=== PATIENT | male | born 1945 | race Caucasian/White ===

== ENCOUNTER 2017-02-06 17:27 | Emergency (ER) | payer BC, OTHER ==
--- NOTE | 2017-02-06 18:56 | ER Document Report ---
ED Medical Screen (RME) - General Chief Complaint: Toe Injury Stated Complaint: LEFT TOE PAIN,SWELLING Time Seen by Provider: 02/06/17 18:54 Notes: Patient states he came to the hospital because for approximately 3 days he has had some progressive pain of the left foot. He is also noticed some redness. He denies any other symptoms. He states he has had no fevers. No vomiting or diarrhea. He denies any chest pain or shortness of breath. His heart rate was noticed to be approximate 135. He states he does not have a normal high heart rate that he knows of. He states he does feel anxious and this may be the cause. Patient has no other systemic findings or systemic symptoms on history. TRAVEL OUTSIDE OF THE [place] IN LAST 30 DAYS: No - Related Data Allergies/Adverse Reactions: No Known Allergies Allergy (Unverified 02/06/17 17:58) Past Medical History - Social History Frequency of alcohol use: Rare Drug Abuse: None Renal/ Medical History: Denies: Hx Peritoneal Dialysis Physical Exam - Vital signs Vitals: Temp Pulse BP Pulse Ox 98.6 F 130 H 193/105 H 95 02/06/17 17:57 02/06/17 17:57 02/06/17 17:57 02/06/17 17:57 Course - Vital Signs Vital signs: Temp Pulse Resp BP Pulse Ox 98.6 F 130 H 193/105 H 95 02/06/17 17:57 02/06/17 17:57 02/06/17 17:57 02/06/17 17:57
[2017-02-06 19:22] LABS: ABSOLUTE BASOPHILS # (AUTO) 0.1 10^3/uL (0.0-0.2); ABSOLUTE EOSINOPHILS # (AUTO) 0.1 10^3/uL (0.0-0.6); ABSOLUTE LYMPHOCYTES (AUTO) 1.7 10^3/uL (0.5-4.7); ABSOLUTE NEUT (AUTO) 10.3 10^3/uL (1.7-8.2); BASOPHILS % (AUTO) 0.4 % (0-2); EOSINOPHILS % (AUTO) 0.5 % (0-6); HEMATOCRIT 51.1 % (37.9-51.0); HEMOGLOBIN 16.6 g/dL (13.5-17.0); HGB HCT DIFFERENCE -1.3; MEAN CORPUSCULAR HEMOGLOBIN 31.6 pg (27.0-33.4); MEAN CORPUSCULAR HGB CONC 32.4 g/dL (32.0-36.0); MEAN CORPUSCULAR VOLUME 98 fl (80-97); MONOCYTES % (AUTO) 7.7 % (3-13); RED BLOOD COUNT 5.24 10^6/uL (4.35-5.55); RED CELL DISTRIBUTION WIDTH 14.1 % (11.5-14.0); SEGMENTED NEUTROPHILS % (AUTO) 78.4 % (42-78); WHITE BLOOD COUNT 13.1 10^3/uL (4.0-10.5)
[2017-02-06 19:37] LABS: ALANINE AMINOTRANSFERASE 43 U/L (21-72); ALBUMIN 4.9 g/dL (3.5-5.0); ALKALINE PHOSPHATASE 108 U/L (38-126); ANION GAP 11 (5-19); ASPARTATE AMINO TRANSFERASE 30 U/L (17-59); BILIRUBIN,DIRECT 0.5 mg/dL (0.0-0.4); BILIRUBIN,TOTAL 0.8 mg/dL (0.2-1.3); BLOOD UREA NITROGEN 12 mg/dL (7-20); CALCIUM 10.2 mg/dL (8.4-10.2); CARBON DIOXIDE 23 mmol/L (22-30); CHLORIDE 107 mmol/L (98-107); CREATININE RESULT 1.08 mg/dL (0.52-1.25); GLUCOSE 120 mg/dL (75-110); POTASSIUM 4.4 mmol/L (3.6-5.0); SODIUM 141.4 mmol/L (137-145); TOTAL PROTEIN 8.2 g/dL (6.3-8.2)
--- NOTE | 2017-02-06 20:25 | ER Document Report ---
ED Extremity Problem, Lower - General Chief Complaint: Toe Injury Stated Complaint: LEFT TOE PAIN,SWELLING Time Seen by Provider: 02/06/17 18:54 Notes: Patient is a 71-year-old male comes emergency department for chief complaint of pain, swelling, and some redness to the left great toe area at the base. He states he thinks he had this before, unsure if he has a history of gout. He denies any injury to the area, he states he walks all the time because of his job. He denies any fever or chills. He denies history of diabetes. He states he does not take any daily medications but he has also not had a recent evaluation by primary care. He states he hates going to the doctor and gets nervous. TRAVEL OUTSIDE OF THE [place] IN LAST 30 DAYS: No - Related Data Allergies/Adverse Reactions: No Known Allergies Allergy (Unverified 02/06/17 17:58) Past Medical History - General Information source: Patient - Social History Smoking Status: Never Smoker Frequency of alcohol use: Rare Drug Abuse: None Lives with: Alone Family History: Reviewed & Not Pertinent Patient has suicidal ideation: No Patient has homicidal ideation: No - Medical History Medical History: Negative Renal/ Medical History: Denies: Hx Peritoneal Dialysis Surgical Hx: Negative Review of Systems - Review of Systems Constitutional: No symptoms reported EENT: No symptoms reported Cardiovascular: No symptoms reported Respiratory: No symptoms reported Gastrointestinal: No symptoms reported Genitourinary: No symptoms reported Male Genitourinary: No symptoms reported Musculoskeletal: See HPI Skin: See HPI Hematologic/Lymphatic: No symptoms reported Neurological/Psychological: No symptoms reported Physical Exam - Vital signs Vitals: Temp Pulse BP Pulse Ox 98.6 F 130 H 193/105 H 95 02/06/17 17:57 02/06/17 17:57 02/06/17 17:57 02/06/17 17:57 Interpretation: Normal - General General appearance: Anxious - Patient glancing around and appears nervous, talks rapidly In distress: None - HEENT Head: Normocephalic, Atraumatic Eyes: Normal Pupils: PERRL - Respiratory Respiratory status: No respiratory distress Chest status: Nontender Breath sounds: Normal Chest palpation: Normal - Cardiovascular Rhythm: Regular Heart sounds: Normal auscultation Murmur: No - Abdominal Inspection: Normal Distension: No distension Bowel sounds: Normal Tenderness: Nontender Organomegaly: No organomegaly - Back Back: Normal, Nontender - Extremities General upper extremity: Normal inspection, Nontender, Normal color, Normal ROM , Normal temperature General lower extremity: Other - Left MTP area with mild soft tissue swelling, some slight increased erythema over the area, no abnormal heat, mild tenderness to the area. Normal foot exam otherwise - Neurological Neuro grossly intact: Yes Cognition: Normal Orientation: AAOx4 Sandy Coma Scale Eye Opening: Spontaneous Sandy Coma Scale Verbal: Oriented Sandy Coma Scale Motor: Obeys Commands Veronica Coma Scale Total: 15 Speech: Normal Motor strength normal: LUE, RUE, LLE, RLE Sensory: Normal - Psychological Associated symptoms: Normal affect, Normal mood, Anxious - Skin Skin Temperature: Warm Skin Moisture: Dry Skin Color: Normal Course - Re-evaluation Re-evalutation: Patient tachycardic, hypertensive, however other than appearing slightly nervous he is actually very well-appearing, alert, nontoxic. Left first MTP joint is swollen and tender with mild erythema but there is no shininess to the area, there is no abnormal heat, there is no significant tenderness. Does not appear to be infected. Patient ambulates without difficulty. Patient does have a mild leukocytosis however. X-ray is unremarkable. Patient is asking to leave. I discussed with patient that he does not have any obvious signs of infection, there is mild swelling to the area but it is not consistent with gout, after discussion patient will be covered both with Keflex and with naproxen. I asked the nurse to repeat his vital signs, she reported to me that he is improved with his tachycardia but he is still tachycardic, he is very hypertensive, he remained nervous in appearance but well-appearing. I went to discuss with patient additional workup and at least treatments, also planned to discuss follow-up recommendations for this, however patient had already left the room unfortunately. - Vital Signs Vital signs: Temp Pulse Resp BP Pulse Ox 98.6 F 112 H 22 H 207/113 H 98 02/06/17 17:57 02/06/17 21:14 02/06/17 21:14 02/06/17 21:14 02/06/17 21:14 - Laboratory Result Diagrams: 02/06/17 19:05 02/06/17 19:05 Laboratory results interpreted by me: 02/06/17 02/06/17 19:05 19:05 WBC 13.1 H Hct 51.1 H MCV 98 H RDW 14.1 H Seg Neutrophils % 78.4 H Absolute Neutrophils 10.3 H Glucose 120 H Direct Bilirubin 0.5 H Discharge - Discharge Clinical Impression: Left foot pain Disposition: HOME, SELF-CARE Additional Instructions: The x-ray of the foot is normal. The examination shows some soft tissue swelling and mild redness, this is nonspecific. I recommend elevating your foot , applying ice to the area 3-4 times a day, taking both the anti-inflammatory and the Keflex as a precaution. Follow-up with the primary care referral closely for additional monitoring of your blood pressure and vital signs (within the next few days). Return immediately if the area becomes hot, increasingly red, starts to spread or you develop a fever. Prescriptions: Cephalexin Monohydrate [Keflex 500 mg Capsule] 500 mg PO QID #28 capsule Naproxen [Naprosyn 250 mg Tablet] 250 mg PO DAILY PRN #10 tablet PRN Reason: Forms: Return to Work, Elevated Blood Pressure Referrals: FARIDA ORANTES MD [ACTIVE STAFF] - Follow up in 1 week HALEY TAPIA MD [ACTIVE STAFF] - Follow up in 1 week
--- NOTE | 2017-02-06 20:35 | RADIOLOGY REPORT (SQ) ---
EXAM DESCRIPTION: FOOT LEFT COMPLETE COMPLETED DATE/TIME: 02/06/2017 8:25 pm REASON FOR STUDY: pain, swelling COMPARISON: None. NUMBER OF VIEWS: Three views. TECHNIQUE: AP, lateral and oblique radiographic images acquired of the left foot. LIMITATIONS: None. FINDINGS: MINERALIZATION: Normal. BONES: No acute fracture or dislocation. No worrisome bone lesions. JOINTS: No effusions. SOFT TISSUES: No soft tissue swelling. No foreign body. OTHER: No other significant finding. IMPRESSION: NEGATIVE STUDY OF THE LEFT FOOT. NO RADIOGRAPHIC EVIDENCE OF ACUTE INJURY. TECHNICAL DOCUMENTATION: JOB ID: [id number] [employer]- All Rights Reserved
[2017-02-06] MEDS ORDERED: NAPROXEN 250 MG TABLET PO ONE (20:40)
[2017-02-06] MEDS ORDERED: CEPHALEXIN 500 MG CAPSULE PO ONE (20:40)
--- NOTE | 2017-02-06 21:10 | EKG REPORT ---
SEVERITY:- ABNORMAL ECG - SINUS TACHYCARDIA PROBABLE POSTERIOR INFARCT ST DEPRESSION LAT CHEST LEADS, CONSISTENT WITH ISCHEMIA : Confirmed by: Debbie Maher 06-Feb-2017 21:09:32
[2017-02-06 21:17] VITALS: BP 207/113
== END 2017-02-06 21:18 | disposition home or self-care (01) ==
LOC: ER 17:27
DX: M79.672 Pain in left foot (principal); M79.675 Pain in left toe(s); L53.9 Erythematous condition, unspecified; M79.89 Other specified soft tissue disorders; R00.0 Tachycardia, unspecified; I10 Essential (primary) hypertension; D72.829 Elevated white blood cell count, unspecified
CPT/HCPCS: 36415; 80053; 85025; 93005; 93010; 99284